=== PATIENT | female | born 1945 | race Caucasian/White ===

== ENCOUNTER 2016-09-25 17:04 | Emergency (ER) | payer MEDICARE, OTHER ==
[2016-09-25] MEDS ORDERED: NORCO 5/325 MG PO ONE (17:20)
[2016-09-25 17:25] VITALS: BP 143/81; PULSE 80; O2SAT 100
--- NOTE | 2016-09-25 17:33 | ERPHSYRPT ---
- History of Present Illness Time Seen by Provider: 09/25/16 17:20 Source: patient, family Patient Subjective Stated Complaint: sudden pain to left foot Triage Nursing Assessment: to room per w/c. skin w/d, color normal. states had sudden onset of left foot pain today, denies injury. foot w/d, color normal , no swelling noted. good pedal pulse, good cap refill. Physician History: CC: left foot pain Hx: 71 y/o lady went to today to see her radiologist. She went home and was carrying in groceries and noted left foot pain, swelling. Worse so came to ER. It was red but that is now better. No fever or chills. No specific injury. No hx of gout. Not on blood thinners. Pain moderately severe. Method of Injury: unknown Occurred: this afternoon Severity of Pain-Max: severe Severity of Pain-Current: severe Lower Extremities Pain: foot: left Allergies/Adverse Reactions: CHLORAPREP Allergy (Uncoded 09/25/16 17:25) Home Medications: Amlodipine Bes/Olmesartan Med [Heri 5-40 mg Tablet] 1 tab PO DAILY 10/14/13 [ History] Levothyroxine Sodium [Synthroid] 25 mcg DAILY 10/14/13 [History] Simvastatin 40 mg [Zocor 40 mg] 20 mg DAILY 10/14/13 [History] Letrozole [Femara] 2.5 mg PO DAILY 09/25/16 [History] Hx Tetanus, Diphtheria Vaccination/Date Given: Yes (2012) Hx Influenza Vaccination/Date Given: Yes Hx Pneumococcal Vaccination/Date Given: Yes - Review of Systems Constitutional: No Fever, No Chills Musculoskeletal: Joint Redness, Joint Pain (left foot), Joint Swelling, No Back Pain, No Neck Pain, No Fall, No Injury Neurological: No Focal Weakness, No Parasthesia - Past Medical History Pertinent Past Medical History: Yes Neurological History: No Pertinent History ENT History: No Pertinent History Cardiac History: Hypertension Respiratory History: No Pertinent History Endocrine Medical History: Hypothyroidism Musculoskeletal History: Osteoporosis GI Medical History: No Pertinent History History: No Pertinent History Psycho-Social History: Depression Female Reproductive Disorders: Breast Cancer Other Medical History: mild depression. hx breast cancer - Past Surgical History Past Surgical History: Yes Neuro Surgical History: No Pertinent History Cardiac: No Pertinent History Respiratory: No Pertinent History Gastrointestinal: Cholecystectomy Genitourinary: No Pertinent History Musculoskeletal: No Pertinent History Female Surgical History: No Pertinent History, Mastectomy Other Surgical History: CATARACT,LEFT BREAST BX - Social History Smoking Status: Never smoker Exposure to second hand smoke: No Drug Use: none Patient Lives Alone: No - Female History Hx Now: No - Nursing Vital Signs Nursing Vital Signs: Initial Vital Signs Temperature 97.2 F Temperature Source Oral Pulse Rate 80 Respiratory Rate 16 Blood Pressure [Right Arm] 143/81 Pain Intensity 8 - Physical Exam General Appearance: alert Eyes, Ears, Nose, Throat Exam: moist mucous membranes Neck Exam: supple Cardiovascular/Respiratory Exam: regular rate/rhythm Neuro/Tendon Exam: normal sensation, normal motor functions Mental Status Exam: alert, oriented x 3, cooperative Skin Exam: warm, dry, No rash SpO2 Interpretation: normal SpO2: 100 Oxygen Delivery: Room Air Comments: left foot dorsum is mildly swollen. Good pedal pulses. No ankle tenderness. There is metatarsal tenderness. No erythema or warmth. - Course Nursing assessment & vital signs reviewed: Yes - Radiology Exams left foot X-ray Interpretation: Reviewed by me, No Fracture (no malalignment, heel spur present) Ordered Tests: Active Orders 24 hr Category Date Time Status Ede [facility] Care 09/25/16 17:21 Active Cold Application STAT Care 09/25/16 17:21 Active Splint STAT Care 09/25/16 17:20 Active FOOT (MINIMUM 3 VIEWS) Stat Exams 09/25/16 17:20 Taken Medication Summary Discontinued Medications Generic Name Dose Route Start Last Admin Trade Name Freq PRN Reason Stop Dose Admin Acetaminophen/Hydrocodone Bitart 1 tab 09/25/16 17:20 09/25/16 17:37 [place] 5/325 Mg PO 09/25/16 17:21 1 tab STAT ONE Administration Acetaminophen/Hydrocodone Bitart Confirm 09/25/16 17:36 [place] 5/325 Mg Administered 09/25/16 17:37 Dose 1 tab .ROUTE .STK-MED ONE - Progress Progress Note: 09/25/16 17:57 Nothing to suggest DVT which was their primary concern. No fever, redness, or warmth to suggest acute arthritis or infectious process. Will treat as sprain. Explained may need further testing including labs or MRI if not better. Will use ede, darco, walker. Rx motrin, norco. Counseled pt/family regarding: diagnosis, need for follow-up, rad results - Departure Time of Disposition: 17:58 Departure Disposition: Home Clinical Impression: Sprain of left foot Condition: Stable Critical Care Time: No Referrals: VANESSA BRITTON [Primary Care Provider] - Instructions: Foot Pain, Choose and Use a Walker Additional Instructions: Rx motrin=ibuprofen Rx norco Ede, post op shoe, walker to limit weight bearing No driving while taking norco. Follow up with Dr Britton next week. May need MRI or other tests if not better. Prescriptions: Hydrocodone Bit/Acetaminophen [[place] 5-325 Tablet] 1 each PO Q6H PRN PRN #20 tablet PRN Reason: Pain Ibuprofen 600 mg PO Q6H PRN PRN #20 tablet PRN Reason: Pain
[2016-09-25] MEDS ORDERED: NORCO 5/325 MG ONE (17:36)
--- NOTE | 2016-09-25 21:36 | XRAY ---
Indication: Dorsal pain. No known injury. Comparison: None 3 nonweightbearing views of the left foot demonstrate small plantar heel spur. No other bony, articular, or soft tissue abnormalities.
== END 2016-09-25 18:10 | disposition home or self-care (01) ==
LOC: ED 17:04
DX: S93.602A Unspecified sprain of left foot, initial encounter (principal); M79.672 Pain in left foot
CPT/HCPCS: 73630; 99284; A9270-GY

== ENCOUNTER 2018-12-06 14:42 | Observation (INO) | payer MEDICARE, OTHER ==
[2018-12-06] MEDS ORDERED: MEDICATION INTERVENTION MC SCH (17:30)
[2018-12-06 17:38] LABS: Hematocrit 35.8 % (35-47); Hemoglobin 11.6 gm/dl (12.0-16.0); Mean Cell Volume 93.7 fl (78-100); Mean Corpuscular Hgb Concent. 32.4 g/dl (32-36); Mean Platelet Volume 10.1 fl (6-9.5); Platelet Count 264 K/mm3 (150-450); Red Blood Count 3.82 M/mm3 (4.1-5.4); Red Cell Distribution Width 14.8 % (11.5-14.0); White Blood Count 8.6 K/mm3 (4.0-10.5)
[2018-12-06 17:42] LABS: ALKALINE PHOSPHATASE 129 U/L (38-126); AMYLASE 58 U/L (30-110); ANION GAP 11.8 MEQ/L (5-15); BLOOD UREA NITROGEN 22 mg/dL (7-17); CHLORIDE 107 mmol/L (98-107); Carbon Dioxide 23 mmol/L (22-30); Creatinine 1 0.76 mg/dL (0.52-1.04); Glucose 105 mg/dL (74-106); LIPASE 42 U/L (23-300); Potassium 3.8 mmol/L (3.5-5.1); SGOT/AST 54 U/L (14-36); SGPT/ALT 15 U/L (0-35); SODIUM 137 mmol/L (137-145); Total Protein 7.4 g/dL (6.3-8.2)
[2018-12-06 17:49] LABS: Mean Corpuscular Hemoglobin 30.3 pg (26-32)
[2018-12-06] MEDS: Sodium Chloride 0.9% 1000 ML 1,000 ML IV SCH (18:27)
[2018-12-06] MEDS ORDERED: Benicar 20 MG PO SCH (22:00)
[2018-12-06] MEDS ORDERED: OLMESARTAN MED PO SCH (22:00)
[2018-12-06] MEDS ORDERED: ZOCOR 20MG PO SCH (22:00)
[2018-12-06] MEDS ORDERED: AMLODIPINE BES PO SCH (22:00)
[2018-12-06] MEDS ORDERED: NORVASC 5 MG PO SCH (22:00)
[2018-12-06] MEDS: Coreg 6.25 MG PO SCH (23:47)
[2018-12-07 02:25] LABS: Appearance SLIGHTLY CLOUDY (CLEAR); Bilirubin NEGATIVE (NEGATIVE); Blood MODERATE Ery/ul (0-5); Epithelial Cells RARE /HPF (FEW); Glucose NEGATIVE (NEGATIVE); Ketones MODERATE (NEGATIVE); Leukocyte Esterase NEGATIVE (NEGATIVE); Mucus SLIGHT /HPF (NEGATIVE); Nitrite NEGATIVE (NEGATIVE); Protein,Urine Dip 100 (Negative); RBC 0-2 /HPF (0-2); Specific Gravity 1.021 (1.005-1.025); Urobilinogen NEGATIVE mg/dL (0-1)
[2018-12-07] MEDS: Sodium Chloride 0.9% 1000 ML 1,000 ML IV SCH (06:12)
[2018-12-07] MEDS: Coreg 6.25 MG PO SCH (08:45)
--- NOTE | 2018-12-07 08:59 | PCM.NOTE ---
Date and Time: 12/07/18857 Subjective Assessment: doing ok - Review of Systems Constitutional: No Fever, No Chills Eyes: No Symptoms Ears, Nose, & Throat: No Symptoms Respiratory: No Cough, No Short Of Breath Cardiac: No Chest Pain, No Edema, No Syncope Abdominal/Gastrointestinal: No Abdominal Pain, No Nausea, No Vomiting, No Diarrhea Genitourinary Symptoms: No Dysuria Musculoskeletal: No Back Pain, No Neck Pain Skin: No Rash Neurological: No Dizziness, No Focal Weakness, No Sensory Changes Psychological: No Symptoms Endocrine: No Symptoms Hematologic/Lymphatic: No Symptoms Immunological/Allergic: No Symptoms Objective Exam General Appearance: no apparent distress, alert Neurologic Exam: alert, oriented x 3, cooperative, normal mood/affect, nml cerebellar function, sensation nml, No motor deficits Skin Exam: normal color, warm, dry Eye Exam: PERRL, EOMI, eyes nml inspection Ears, Nose, Throat Exam: normal ENT inspection, pharynx normal, moist mucous membranes Neck Exam: normal inspection, non-tender, supple, full range of motion Respiratory Exam: normal breath sounds, lungs clear, No respiratory distress Cardiovascular Exam: regular rate/rhythm, normal heart sounds Gastrointestinal/Abdomen Exam: soft, No tenderness, No mass Extremity Exam: normal inspection, normal range of motion Back Exam: normal inspection, normal range of motion, No CVA tenderness, No vertebral tenderness Pelvic Exam: deferred Rectal Exam: deferred OBJECTIVE DATA Vital Signs: Vital Signs - 24 hr Temp Pulse Resp BP Pulse Ox 12/07/18 08:00 98.7 F 78 20 114/57 96 12/07/18 04:00 98.4 F 75 16 102/54 92 L 12/07/18 00:00 98.2 F 80 16 134/67 92 L 12/06/18 20:00 98.6 F 92 H 18 118/62 94 L 12/06/18 15:48 98.1 F 103 H 20 132/78 97 12/06/18 15:14 98.1 F 103 H 20 132/78 97 Pain Assessment - Last Documented Pain Intensity 0 Pain Scale Used 0-10 Pain Scale Intake and Output: Intake & Output 12/04/18 12/05/18 12/06/18 12/07/18 11:59 11:59 11:59 11:59 Intake Total 2028 Output Total 500 Balance 1529 Weight 68.9 kg Lab Results: Lab Results-Last 24 Hours 12/06/18 12/06/18 12/07/18 Range/Units 15:20 15:20 00:03 WBC 8.6 (4.0-10.5) K/mm3 RBC 3.82 L (4.1-5.4) M/mm3 Hgb 11.6 L (12.0-16.0) gm/dl Hct 35.8 (35-47) % MCV 93.7 (78-100) fl MCH 30.3 (26-32) pg MCHC 32.4 (32-36) g/dl RDW 14.8 H (11.5-14.0) % Plt Count 264 (150-450) K/mm3 MPV 10.1 H (6-9.5) fl Sodium 137 (137-145) mmol/L Potassium 3.8 (3.5-5.1) mmol/L Chloride 107 (98-107) mmol/L Carbon Dioxide 23 (22-30) mmol/L Anion Gap 11.8 (5-15) MEQ/L BUN 22 H (7-17) mg/dL Creatinine 0.76 (0.52-1.04) mg/dL Estimated GFR > 60.0 ML/MIN Glucose 105 (74-106) mg/dL Calcium 9.0 (8.4-10.2) mg/dL Total Bilirubin 0.70 (0.2-1.3) mg/dL AST 54 H (14-36) U/L ALT 15 (0-35) U/L Alkaline Phosphatase 129 H (38-126) U/L Serum Total Protein 7.4 (6.3-8.2) g/dL Albumin 4.0 (3.5-5.0) g/dL Amylase 58 (30-110) U/L Lipase 42 (23-300) U/L Urine Color YELLOW (YELLOW) Urine Appearance SLIGHTLY CLOUDY (CLEAR) Urine pH 5.0 (5-6) Ur Specific [place] 1.021 (1.005-1.025) Urine Protein 100 (Negative) Urine Ketones MODERATE (NEGATIVE) Urine Blood MODERATE (0-5) Oskar/ul Urine Nitrite NEGATIVE (NEGATIVE) Urine Bilirubin NEGATIVE (NEGATIVE) Urine Urobilinogen NEGATIVE (0-1) mg/dL Ur Leukocyte Esterase NEGATIVE (NEGATIVE) Urine WBC (Auto) 6-10 (0-5) /HPF Urine RBC (Auto) 0-2 (0-2) /HPF U Epithel Cells (Auto) RARE (FEW) /HPF Urine Bacteria (Auto) NONE (NEGATIVE) /HPF Urine Mucus (Auto) SLIGHT (NEGATIVE) /HPF Urine Culture Reflexed ORDERED SEPARATELY (NO) Urine Glucose NEGATIVE (NEGATIVE) mg/dL Radiology Exams: Radiology Procedures Category Date Time Status ABDOMEN AND PELVIS W CONTRAST [CT] Urgent Exams 12/06/18 19:15 Taken Assessment/Plan (1) UTI (urinary tract infection) Current Visit: Yes Status: Acute Qualifiers: Urinary tract infection type: acute cystitis Hematuria presence: without hematuria Qualified Code(s): N30.00 - Acute cystitis without hematuria Assessment & Plan: will start on ceftriaxone Code(s): N39.0 - URINARY TRACT INFECTION, SITE NOT SPECIFIED (2) Dehydration Current Visit: No Status: Acute Code(s): E86.0 - DEHYDRATION
--- NOTE | 2018-12-07 09:13 | PCM.DS ---
Discharge Summary Date of Admission: 12/06/18 14:47 Admitting Physician: RUTH BRYSON Primary Care Provider: VANESSA BRITTON Allergies Allergies CHLORAPREP Allergy (Uncoded 09/25/16 17:25) Hospital Summary - Hospital Course Hospital Course: Last Vital Signs Temp 98.7 F 12/07/18 08:00 Pulse 78 12/07/18 08:00 Resp 20 12/07/18 08:00 BP 114/57 12/07/18 08:00 Pulse Ox 96 12/07/18 08:00 Allergies CHLORAPREP Allergy (Uncoded 09/25/16 17:25) Active Medications Amlodipine Besylate (Norvasc 5 Mg) 5 mg PO HS CISCO Stop: 01/05/19 21:59 Last Admin: 12/06/18 23:47 Dose: 5 mg Carvedilol (Coreg 6.25 Mg) 6.25 mg PO BID CISCO Stop: 01/05/19 21:59 Last Admin: 12/07/18 08:45 Dose: 6.25 mg Ergocalciferol (Vitamin D2) 50,000 unit PO WEEKLY CISCO Stop: 01/06/19 09:59 Sodium Chloride (Sodium Chloride 0.9% 1000 Ml) 1,000 mls @ 100 mls/hr IV .Q10H CISCO Stop: 01/05/19 17:29 Last Admin: 12/07/18 06:12 Dose: 100 mls/hr Levothyroxine Sodium (Synthroid 25 Mcg) 25 mcg PO DAILY CISCO Stop: 01/06/19 09:59 Last Admin: 12/07/18 08:45 Dose: 25 mcg Losartan Potassium (Cozaar 50 Mg) 25 mg PO DAILY CISCO Stop: 01/06/19 09:59 Last Admin: 12/07/18 08:44 Dose: 25 mg Miscellaneous Information (Medication Intervention) 0 each MC .RN TO CHECK WITH PT CISCO Stop: 01/05/19 17:29 Olmesartan (Benicar 20 Mg) 40 mg PO HS CISCO Stop: 01/05/19 21:59 Last Admin: 12/06/18 23:47 Dose: 40 mg Simvastatin (Zocor 20mg) 20 mg PO HS CISCO Stop: 01/05/19 21:59 Last Admin: 12/06/18 23:47 Dose: 20 mg Intake & Output 12/06/18 12/07/18 11:59 11:59 Intake Total 2028 Output Total 500 Balance 1529 Weight 68.9 kg Orders 12/06/18 14:47 Place in Observation ROUTINE 12/06/18 16:05 A Class Lineman/Discharge Plan ROUTINE Nutritional Admission Screen once 12/06/18 17:07 Activity as Tolerated TOLERATED 12/06/18 17:11 Nursing [Miscellaneous Nursing Order] ROUTINE 12/06/18 17:30 Medication Intervention 0 each MC .RN TO CHECK WITH PT NaCl 0.9% 1000 ml [Sodium Chloride 0.9% 1000 ML] 1,000 ml IV 100 mls/hr 12/06/18 19:15 ABDOMEN AND PELVIS W CONTRAST [CT] Urgent 12/06/18 22:00 Amlodipine Besylate 5 mg [Norvasc 5 mg] 5 mg PO HS Carvedilol 6.25 mg [Coreg 6.25 MG] 6.25 mg PO BID Olmesartan Medoxomil 20 mg [Benicar 20 MG] 40 mg PO HS Simvastatin 20Mg [Zocor 20Mg] 20 mg PO HS 12/07/18 04:37 CULTURE,URINE Urgent 12/07/18 10:00 Ergocalciferol (Vitamin D2) [Vitamin D2] 50,000 unit PO WEEKLY Levothyroxine Sodium 25 Mcg [Synthroid 25 Mcg] 25 mcg PO DAILY Losartan Potassium 50 mg [Cozaar 50 MG] 25 mg PO DAILY 12/07/18 Breakfast Regular Diet Lab Tests 12/06/18 12/06/18 12/07/18 15:20 15:20 00:03 WBC 8.6 RBC 3.82 L Hgb 11.6 L Hct 35.8 MCV 93.7 MCH 30.3 MCHC 32.4 RDW 14.8 H Plt Count 264 MPV 10.1 H Sodium 137 Potassium 3.8 Chloride 107 Carbon Dioxide 23 Anion Gap 11.8 BUN 22 H Creatinine 0.76 Estimated GFR > 60.0 Glucose 105 Calcium 9.0 Total Bilirubin 0.70 AST 54 H ALT 15 Alkaline Phosphatase 129 H Serum Total Protein 7.4 Albumin 4.0 Amylase 58 Lipase 42 Urine Color YELLOW Urine Appearance SLIGHTLY CLOUDY Urine pH 5.0 Ur Specific [place] 1.021 Urine Protein 100 Urine Ketones MODERATE Urine Blood MODERATE Urine Nitrite NEGATIVE Urine Bilirubin NEGATIVE Urine Urobilinogen NEGATIVE Ur Leukocyte Esterase NEGATIVE Urine WBC (Auto) 6-10 Urine RBC (Auto) 0-2 U Epithel Cells (Auto) RARE Urine Bacteria (Auto) NONE Urine Mucus (Auto) SLIGHT Urine Culture Reflexed ORDERED SEPARATELY Urine Glucose NEGATIVE - Vitals & Intake/Output Vital Signs: Vital Signs Temperature 98.7 F 12/07/18 08:00 Pulse Rate 78 12/07/18 08:00 Respiratory Rate 20 12/07/18 08:00 Blood Pressure 114/57 12/07/18 08:00 O2 Sat by Pulse Oximetry 96 12/07/18 08:00 Intake & Output: Intake & Output 12/04/18 12/05/18 12/06/18 12/07/18 11:59 11:59 11:59 11:59 Intake Total 2029 Output Total 500 Balance 1529 Weight 68.9 kg - Lab Result Diagrams: 12/06/18 15:20 12/06/18 15:20 Lab Results-Last 24 Hrs: Lab Results-Last 24 Hours 12/06/18 12/06/18 12/07/18 Range/Units 15:20 15:20 00:03 WBC 8.6 (4.0-10.5) K/mm3 RBC 3.82 L (4.1-5.4) M/mm3 Hgb 11.6 L (12.0-16.0) gm/dl Hct 35.8 (35-47) % MCV 93.7 (78-100) fl MCH 30.3 (26-32) pg MCHC 32.4 (32-36) g/dl RDW 14.8 H (11.5-14.0) % Plt Count 264 (150-450) K/mm3 MPV 10.1 H (6-9.5) fl Sodium 137 (137-145) mmol/L Potassium 3.8 (3.5-5.1) mmol/L Chloride 107 (98-107) mmol/L Carbon Dioxide 23 (22-30) mmol/L Anion Gap 11.8 (5-15) MEQ/L BUN 22 H (7-17) mg/dL Creatinine 0.76 (0.52-1.04) mg/dL Estimated GFR > 60.0 ML/MIN Glucose 105 (74-106) mg/dL Calcium 9.0 (8.4-10.2) mg/dL Total Bilirubin 0.70 (0.2-1.3) mg/dL AST 54 H (14-36) U/L ALT 15 (0-35) U/L Alkaline Phosphatase 129 H (38-126) U/L Serum Total Protein 7.4 (6.3-8.2) g/dL Albumin 4.0 (3.5-5.0) g/dL Amylase 58 (30-110) U/L Lipase 42 (23-300) U/L Urine Color YELLOW (YELLOW) Urine Appearance SLIGHTLY CLOUDY (CLEAR) Urine pH 5.0 (5-6) Ur Specific [place] 1.021 (1.005-1.025) Urine Protein 100 (Negative) Urine Ketones MODERATE (NEGATIVE) Urine Blood MODERATE (0-5) Oskar/ul Urine Nitrite NEGATIVE (NEGATIVE) Urine Bilirubin NEGATIVE (NEGATIVE) Urine Urobilinogen NEGATIVE (0-1) mg/dL Ur Leukocyte Esterase NEGATIVE (NEGATIVE) Urine WBC (Auto) 6-10 (0-5) /HPF Urine RBC (Auto) 0-2 (0-2) /HPF U Epithel Cells (Auto) RARE (FEW) /HPF Urine Bacteria (Auto) NONE (NEGATIVE) /HPF Urine Mucus (Auto) SLIGHT (NEGATIVE) /HPF Urine Culture Reflexed ORDERED SEPARATELY (NO) Urine Glucose NEGATIVE (NEGATIVE) mg/dL - Radiology Exams Ordered Rad Exams-Entire Visit: Radiology Procedures Category Date Time Status ABDOMEN AND PELVIS W CONTRAST [CT] Urgent Exams 12/06/18 19:15 Taken Discharge Exam General Appearance: no apparent distress, alert Neurologic Exam: alert, oriented x 3, cooperative, normal mood/affect, nml cerebellar function, sensation nml, No motor deficits Eye Exam: PERRL, EOMI, eyes nml inspection Ears, Nose, Throat Exam: normal ENT inspection, pharynx normal, moist mucous membranes Neck Exam: normal inspection, non-tender, supple, full range of motion Respiratory Exam: normal breath sounds, lungs clear, No respiratory distress Cardiovascular Exam: regular rate/rhythm, normal heart sounds Gastrointestinal/Abdomen Exam: soft, No tenderness, No mass Pelvic Exam: deferred Rectal Exam: deferred Back Exam: normal inspection, normal range of motion, No CVA tenderness, No vertebral tenderness Extremity Exam: normal inspection, normal range of motion Skin Exam: normal color, warm, dry Final Diagnosis/Problem List - Final Discharge Diagnosis/Problem (1) UTI (urinary tract infection) Current Visit: Yes Status: Acute Code(s): N39.0 - URINARY TRACT INFECTION, SITE NOT SPECIFIED (2) Dehydration Current Visit: Yes Status: Resolved Code(s): E86.0 - DEHYDRATION (3) Colitis Current Visit: Yes Status: Acute Code(s): K52.9 - NONINFECTIVE GASTROENTERITIS AND COLITIS, UNSPECIFIED - Discharge Discharge Date: 12/07/18 Disposition: Home, Self-Care Condition: Stable Prescriptions: New Ciprofloxacin [Cipro 500 MG] 500 mg PO BID #15 tablet Continue Amlodipine Bes/Olmesartan Med [Heri 5-40 mg Tablet] 1 tab PO HS Simvastatin 40 mg [Zocor 40 mg] 20 mg PO HS Levothyroxine Sodium [Synthroid] 25 mcg PO DAILY Letrozole [Femara] 2.5 mg PO DAILY Carvedilol 6.25 mg [Coreg 6.25 MG] 6.25 mg PO BID Ergocalciferol (Vitamin D2) [Vitamin D] 50,000 units PO WEEKLY Losartan Potassium [Cozaar] 25 mg PO DAILY Follow up with: VANESSA BRITTON [Primary Care Provider] - 1 Week
--- NOTE | 2018-12-07 09:22 | XRAY ---
Indication: Dehydration, nausea, vomiting, diarrhea, weakness, and fever. Left mastectomy. Multiple contiguous axial images obtained through the abdomen and pelvis using 80 cc Isovue 370 contrast only. Comparison: None Lung bases demonstrates bibasilar dependent atelectasis, a few tiny calcified granulomas, and tiny left effusion. No infiltrate. Heart is not enlarged. Moderate-sized hiatal hernia with partial intrathoracic stomach. There has been left mastectomy. Noncontrasted stomach and bowel loops appear nonobstructed. Normal appendix. There are mild fluid distended small and large bowel loops with predominantly asynchronous fluid leveling, ileus versus enterocolitis. No free fluid/air. Minimal sigmoid diverticulosis. A few hepatic cysts, largest right lobe measuring 5 cm. Both kidneys enhance and excrete with a few bilateral renal cysts, largest right lower pole measuring 2.2 cm. Previous cholecystectomy. Remaining liver, pancreas, spleen, adrenal glands, kidneys, ureters, bladder, and uterus appear unremarkable. Mild aortic calcifications. No AAA or pathologic retroperitoneal lymphadenopathy. Osseous structures intact with mild degenerative changes throughout the thoracolumbar spine. Visualized axial skeleton also demonstrates multiple sclerotic lesions worrisome for metastasis. No ventral or inguinal hernias. Impression: 1. Fluid distended small and large bowel loops with fluid leveling, ileus versus enterocolitis. 2. Multiple bony sclerotic lesions worrisome for metastasis in this patient with history of left breast cancer. 3. Incidental hiatal hernia with partial intrathoracic stomach, sigmoid diverticulosis, hepatic cysts, and renal cysts. Comment: Preliminary interpretation was made by [facility]. No critical discrepancy. CT DI 16.55
[2018-12-07] MEDS ORDERED: Cozaar 50 MG PO SCH (10:00)
[2018-12-07] MEDS ORDERED: VITAMIN D2 PO SCH (10:00)
[2018-12-07] MEDS ORDERED: LETROZOLE 2.5 MG PO SCH (10:00)
[2018-12-07] MEDS ORDERED: SYNTHROID 25 MCG PO SCH (10:00)
[2018-12-07 13:10] VITALS: BP 109/61; PULSE 75; O2SAT 97
== END 2018-12-07 12:05 | disposition home or self-care (01) ==
LOC: MED SURG 14:47
PROVIDERS: ADMIT General Practice; ATTEND General Practice
DX: N39.0 Urinary tract infection, site not specified (principal); E86.0 Dehydration; K52.9 Noninfective gastroenteritis and colitis, unspecified; Z79.899 Other long term (current) drug therapy
CPT/HCPCS: 36415; 74177; 80053; 81001; 82150; 83690; 85027; 87086; G0378; A9270-GY

== ENCOUNTER 2025-03-01 06:00 | Emergency (ER) | payer MEDICARE, OTHER ==
[2025-03-01 06:27] VITALS: RESP 20; TEMP 98.2
--- NOTE | 2025-03-01 06:41 | ERPHSYRPT ---
- History of Present Illness Historian: patient, family Exam Limitations: no limitations Patient Subjective Stated Complaint: pt reports she was recently treated for colitis and had diarrhea, reports now that she has not had a bowel movement in 3 days and is having severe abominal pain that radiates to her back, states she was unable to sleep last night due to pain. pt reports recent treatment for bronchitis as well. Triage Nursing Assessment: pt is aox3, pupils perrl, afebrile, resps easy and non labored, cap refill < 3 seconds, radial pulses strong and equal, abdomen is distended, tender diffusely, bowel sounds present, pt skin pale warm dry. Timing/Duration: day(s) (3) Activities at Onset: none Quality: cramping Abdominal Pain Onset Location: generalized abdomen Severity of Pain-Max: mild (To moderate) Severity of Pain-Current: mild (Moderate) Modifying Factors: Improves With: nothing Associated Symptoms: loss of appetite, other (Constipation) Previous symptoms: no prior history, recently treated (For bronchitis and a right ear infection) Hx Tetanus, Diphtheria Vaccination/Date Given: No (2012) Hx Influenza Vaccination/Date Given: Yes Hx Pneumococcal Vaccination/Date Given: Yes <LAINEY KIDD - Last Filed: 03/01/25 06:44> <KAMILA DUTTA - Last Filed: 03/01/25 08:38> - History of Present Illness Time Seen by Provider: 03/01/25 06:15 Physician History: This is an 79-year-old white female patient who presents to the emergency department by private vehicle accompanied by her spouse with a complaint of abdominal pain and constipation for 3 days. Patient has generalized abdominal cramping. In 2014 patient was diagnosed with breast cancer. Over the last few months, the patient has been taking 2 weeks on, 2 weeks off chemotherapy pill for bone recurrence of breast cancer per her report. A few weeks ago patient had colitis and was started on antibiotic. That cleared up. She then was diagnosed with bronchitis and was started on Augmentin and a Medrol Dosepak. She is currently on those medications. She was then placed on topical otic drops for right ear pain. Patient has a PET scan scheduled for the next 1 to 2 weeks. Prior to her constipation she had several days of diarrhea. Patient denies chest pain the patient denies shortness of breath. Patient has a history of hypertension, hyperlipidemia, hypothyroidism and gastroesophageal reflux disease. (LAINEY KIDD) Allergies/Adverse Reactions: CHLORAPREP Allergy (Uncoded 03/01/25 06:27) Home Medications: Levothyroxine Sodium [Synthroid] 100 mcg PO DAILY 10/14/13 [History] Simvastatin 40 mg [Zocor 40 mg] 20 mg PO HS 10/14/13 [History] Amlodipine Besylate 5 mg [Norvasc 5 mg] 5 mg PO HS 03/01/25 [History] Amox Tr/Potass Clav. 875 mg [Augmentin 875-125 Tablet] 875 mg PO DAILY 03/01/25 [History] Benzonatate 100 mg PO Q8HPRN PRN 03/01/25 [History] Capecitabine [Xeloda] 500 mg PO UD 03/01/25 [History] Fenofibrate Nanocrystallized [Fenofibrate] 48 mg PO HS 03/01/25 [History] Alexander/Baci/Poly/Hc Ear Solution* [CORTISPORIN EAR DROPS Solution 1OML] 4 drops OT TID 03/01/25 [History] Omeprazole 40 mg PO HS 03/01/25 [History] methylPREDNISolone [Methylprednisolone] 4 mg PO UD 03/01/25 [History] Travel Risk - International Travel Have you traveled outside of the country in past 3 weeks: No - Emerging Infectious Disease Are you exhibiting symptoms associated with any current EIDs: No <LAINEY KIDD - Last Filed: 03/01/25 06:44> - Review of Systems Constitutional: No Symptoms Eyes: No Symptoms Ears, Nose, & Throat: No Symptoms Respiratory: No Symptoms Cardiac: No Symptoms Abdominal/Gastrointestinal: Abdominal Pain, Nausea (None now), Constipation, Appetite Changes Genitourinary Symptoms: No Symptoms Musculoskeletal: No Symptoms Skin: No Symptoms Neurological: No Symptoms Psychological: No Symptoms Endocrine: No Symptoms Hematologic/Lymphatic: No Symptoms Immunological/Allergic: No Symptoms All Other Systems: Reviewed and Negative <LAINEY KIDD - Last Filed: 03/01/25 06:44> - Past Medical History Pertinent Past Medical History: Yes Neurological History: No Pertinent History ENT History: Cataracts Cardiac History: Hypertension Respiratory History: No Pertinent History Endocrine Medical History: Hypothyroidism Musculoskeletal History: Osteoporosis GI Medical History: No Pertinent History History: No Pertinent History Psycho-Social History: Depression Female Reproductive Disorders: Breast Cancer Other Medical History: mild depression. hx breast cancer - Past Surgical History Past Surgical History: Yes Neuro Surgical History: No Pertinent History Cardiac: No Pertinent History Respiratory: No Pertinent History Gastrointestinal: Cholecystectomy Genitourinary: No Pertinent History Musculoskeletal: No Pertinent History Female Surgical History: Mastectomy Other Surgical History: CATARACT,LEFT BREAST BX - Social History Smoking Status: Never smoker Exposure to second hand smoke: No Drug Use: none - Social Determinants of Health Will the patient participate in the screening: Yes Do you worry about a steady place to live?: No Do you have any problems with any of the following?: No known problems In the past 12 months,have you had to go without utilities?: No Transportation Issues: No Has anyone in your support network made you feel unsafe?: No Have you or anyone in your house had to go w/o enough food: No <LAINEY KIDD - Last Filed: 03/01/25 06:44> - Physical Exam General Appearance: no apparent distress, alert, anxiety Eye Exam: PERRL/EOMI, eyes nml inspection Ears, Nose, Throat Exam: dry mucous membranes Neck Exam: normal inspection, non-tender, supple, full range of motion Respiratory Exam: normal breath sounds, lungs clear, airway intact, No chest tenderness, No respiratory distress Cardiovascular Exam: regular rate/rhythm, normal heart sounds, normal peripheral pulses Gastrointestinal/Abdomen Exam: soft, normal bowel sounds, tenderness (Generalized mild to palpation), guarding Pelvic Exam: not done Rectal Exam: not done Back Exam: normal inspection, normal range of motion, No CVA tenderness, No vertebral tenderness Extremity Exam: normal inspection, normal range of motion, pelvis stable Neurologic Exam: alert, oriented x 3, cooperative, night time babysitter II-XII nml as tested, nml cerebellar function, nml station & gait, sensation nml Skin Exam: normal color, warm, dry Lymphatic Exam: No adenopathy SpO2 Interpretation: normal SpO2: 97 O2 Delivery: Room Air <LAINEY KIDD - Last Filed: 03/01/25 06:44> - Nursing Vital Signs Nursing Vital Signs: Initial Vital Signs Temperature 98.2 F 03/01/25 06:10 Pulse Rate 62 03/01/25 06:10 Respiratory Rate 20 03/01/25 06:10 Blood Pressure 125/76 03/01/25 06:10 O2 Sat by Pulse Oximetry 97 03/01/25 06:10 Pain Scale Pain Intensity 10 <KAMILA DUTTA - Last Filed: 03/01/25 08:38> Ordered Tests: Active Orders 24 hr Category Date Time Status IV Insertion STAT Care 03/01/25 06:41 Active ABDOMEN AND PELVIS W/0 CONTRAS [CT] Stat Exams 03/01/25 06:42 Completed CHEST WITHOUT CONTRAST [CT] Stat Exams 03/01/25 06:43 Completed AMYLASE Stat Lab 03/01/25 07:48 Completed BLOOD CULTURE Stat Lab 03/01/25 07:48 Ordered CBC W DIFF Stat Lab 03/01/25 07:48 Completed CMP Stat Lab 03/01/25 07:48 Completed LIPASE Stat Lab 03/01/25 07:48 Completed UA W/RFX UR CULTURE Stat Lab 03/01/25 06:44 Completed Medication Summary Generic Name Dose Route Start Last Admin Trade Name [place] PRN Reason Stop Dose Admin Sodium Chloride 1,000 mls @ 100 mls/hr 03/01/25 06:45 03/01/25 06:50 Sodium Chloride 0.9% 1000 Ml IV 03/31/25 06:44 100 mls/hr .Q10H CISCO Administration Discontinued Medications Generic Name Dose Route Start Last Admin Trade Name Chaseq PRN Reason Stop Dose Admin Ketorolac Tromethamine 15 mg 03/01/25 07:46 03/01/25 07:49 Ketorolac Tromethamine 30 Mg/Ml Inj IV 03/01/25 07:47 15 mg STAT ONE Administration Lab/Rad Data: Laboratory Result Diagrams 03/01/25 07:48 03/01/25 07:48 Laboratory Results 03/01/25 03/01/25 03/01/25 Range/Units 07:48 07:48 06:44 WBC 8.8 (3.98-10.04) x10^3/uL RBC 2.78 L (3.93-5.22) x10^6/uL Hgb 9.5 L (11.2-15.7) g/dL Hct 30.0 L (34.1-44.9) % MCV 107.9 H (79.4-94.8) fL MCH 34.2 H (25.6-32.2) pg MCHC 31.7 L (32.2-35.5) g/dL RDW 17.9 H (11.7-14.4) % Plt Count 191 (182-369) x10^3/uL MPV 9.1 L (9.4-12.3) fL Gran % 73.9 H (34.0-71.1) % Immature Gran % (Auto) 2.2 H (0.001-0.429) % Nucleat RBC Rel Count 0.9 H (0.00-0.2) % Eos # (Auto) 0.02 L (0.04-0.36) x10^3/uL Immature Gran # (Auto) 0.19 H (0.001-0.031) x10^3u/L Absolute Lymphs (auto) 1.47 (1.18-3.74) x10^3/uL Absolute Monos (auto) 0.61 (0.24-0.86) x10^3/uL Absolute Nucleated RBC 0.08 H (0.00-0.012) x10^3u/L Lymphocytes % 16.7 L (19.3-51.7) % Monocytes % 6.9 (4.7-12.5) % Eosinophils % 0.2 L (0.7-5.8) % Basophils % 0.1 (0.1-1.2) % Absolute Granulocytes 6.48 H (1.56-6.13) x10^3/uL Basophils # 0.01 (0.01-0.08) x10^3/uL Sodium 138 (135-145) mmol/L Potassium 4.1 (3.5-5.1) mmol/L Chloride 106 (98-107) mmol/L Carbon Dioxide 27 (22-30) mmol/L Anion Gap 9.9 (5-15) MEQ/L BUN 28 H (7-17) mg/dL Creatinine 0.84 (0.52-1.04) mg/dL Estimated GFR 69.8 ML/MIN Glucose 90 (74-106) mg/dL Calcium 9.3 (8.4-10.2) mg/dL Total Bilirubin 0.50 (0.2-1.3) mg/dL AST 79 H (14-36) U/L ALT 16 (0-35) U/L Alkaline Phosphatase 151 H (38-126) U/L Serum Total Protein 6.1 L (6.3-8.2) g/dL Albumin 3.6 (3.5-5.0) g/dL Amylase 57 (30-110) U/L Lipase 49 (23-300) U/L Urine Color Yellow (Yellow) Urine Appearance Clear (Clear) Urine pH 6.0 (4.6-8.0) Ur Specific [place] 1.015 (1.005-1.030) Urine Protein Negative (Negative) Urine Glucose (UA) Negative (Negative) mg/dL Urine Ketones Negative (Negative) Urine Blood Trace (Negative) Urine Nitrite Negative (Negative) Urine Bilirubin Negative (Negative) Urine Urobilinogen 1.0 A (0.2) mg/dL Ur Leukocyte Esterase Negative (Negative) U Hyaline Cast (Auto) NONE SEEN (0-2) /LPF Urine Microscopic RBC 0-2 (0-5) /HPF Urine Microscopic WBC 0-2 (0-5) /HPF Ur Epithelial Cells Rare (None Seen) /HPF Urine Bacteria None Seen (None Seen) /HPF Urine Culture Reflexed NO (NO) Procedures: [id number] CT/CHEST WITHOUT CONTRAST CLINICAL HISTORY: L posterior lateral rib/flank pain COMPARISON: None. TECHNIQUE: Contiguous axial images were obtained from the neck base through the upper abdomen without contrast. In addition, sagittal and coronal reconstructions were performed to potentially increase the sensitivity for the detection of disease. CT scan was performed according to ALARA (as low as reasonably achievable). FINDINGS: Evidence of multiple sclerotic/osteolytic lesions are noted involving visualized all bones, including spine, sternum, bilateral ribs, bilateral scapula.- possibility of marrow infiltrative disease /could be metastasis - clinical correlation suggested. Evidence of left mastectomy. Multiple tiny scattered calcified granuloma noted in both lungs. Focal fibroatelectatic band is noted involving lingula. Old healed fracture of left 11th rib. Rest of lungs are clear. central airways are patent. There are no pleural effusions. No pneumothorax is seen. Evaluation of the mediastinum and anny is limited due to the lack of intravenous contrast. No axillary or mediastinal adenopathy is identified. The thyroid is unremarkable. The heart, aorta, and pulmonary arteries are of normal size and configuration. There are coronary artery and aortic atherosclerotic calcifications. No pericardial effusion is identified. Large rolling hiatus hernia. IMPRESSION: 1. Evidence of multiple sclerotic/osteolytic lesions are noted involving visualized all bones, including spine, sternum, bilateral ribs, bilateral scapula.- possibility of marrow infiltrative disease /could be metastasis - clinical correlation suggested. 2. Multiple tiny scattered calcified granuloma noted in both lungs. 3. Focal fibroatelectatic band is noted involving lingula. 4. Old healed fracture of left 11th rib. [id number] CT/ABDOMEN AND PELVIS W/0 CONTRAS CLINICAL HISTORY: ABD pain; constipation COMPARISON: 12:50:40 [employer]. TECHNIQUE: Contiguous axial images were obtained from the level of the diaphragm to the pubic symphysis without intravenous or oral contrast. Coronal and sagittal reconstructions were likewise performed and indicated to increase the sensitivity for detecting clinically relevant pathology. CT scan was performed according to ALARA (as low as reasonably achievable). FINDINGS: Large rolling hiatus hernia. Evidence of left mastectomy. Evaluation of the abdominal and pelvic visceral organs is limited without intravenous contrast. The unenhanced liver, spleen, pancreas, and adrenal glands are grossly unremarkable. Few hypodense lesions are noted in right lobe of liver - appears benign/ could be Cyst (Advice: Triphasic study correlation). Status post-cholecystectomy. The kidneys are normal in size and attenuation without obvious calcification. There is no hydronephrosis or perinephric stranding. The ureters are normal in caliber. No adenopathy or fluid collections are seen. No evidence of focal or diffuse bowel wall thickening or evidence of bowel obstruction is seen. No imaging evidence of appendicitis. The aorta is normal in caliber. The urinary bladder is normal in contour. Pelvic viscera are grossly unremarkable. Evidence of multiple sclerotic/osteolytic lesions are noted involving visualized all bones, including spine, visualized pelvic bones and femora- possibility of marrow infiltrative disease /could be metastasis - clinical correlation suggested. IMPRESSION: Evidence of multiple sclerotic/osteolytic lesions are noted involving visualized all bones, including spine, visualized pelvic bones and femora- possibility of marrow infiltrative disease /could be metastasis - clinical correlation suggested.-stable. Few hypodense lesions are noted in right lobe of liver - appears benign/ could be Cyst (Advice: Triphasic study correlation).-stable. No other new interval abnormality since prior study. (KAMILA DUTTA) <LAINEY KIDD - Last Filed: 03/01/25 06:44> - Progress Progress: improved Counseled pt/family regarding: lab results, diagnosis, need for follow-up, rad results <KAMILA DUTTA - Last Filed: 03/01/25 08:38> - Progress Progress Note: 03/01/25 06:48 My medical decision making and assignment of moderate complexity to this patient's medical issue today is based on review of the patient's past medical history, review the patient's medication list, reviewed patient drug allergy list, history present illness and physical findings on examination. The workup in this patient includes placement of intravenous line, infusion of low rate crystalloid, CBC, CMP, amylase, lipase, urinalysis, CT scan of the chest and CT scan abdomen pelvis both without contrast. Differential diagnosis includes but is not limited to carcinomatosis, bowel obstruction, constipation, pancreatitis, colitis, diverticulitis, metastatic breast cancer I am transferring care of this patient to Dr. Dutta at shift change. Dr. Dutta will follow-up on the pending studies and make final disposition (LAINEY KIDD) 03/01/25 08:37 Patient was reexamined after Toradol.She is pain-free.Reviewed her labs and urinalysis which did not show any acute abnormality. Her CT showed multiple bony lesions. No evidence of bowel obstruction or intra-abdominal process. At this time she is comfortable starting a stool softener for constipation as she has not had a bowel movement in 3 days. She has follow-up with her primary doctor. We reviewed follow-up return instructions she voiced understanding of treatment plan. Return instructions were given (KAMILA DUTTA) - Departure Departure Disposition: Home Critical Care Time: No <LAINEY KIDD - Last Filed: 03/01/25 06:44> - Departure Critical Care Time: No <KAMILA DUTTA - Last Filed: 03/01/25 08:38> - Departure Clinical Impression: Abdominal pain, Constipation Condition: Stable Referrals: VANESSA BRITTON [Primary Care Provider, [facility]] - Follow up/PCP as directed
[2025-03-01 06:59] LABS: Glucose, Urine Negative (Negative); Protein,Urine Dip Negative (Negative); RBC 0-2 /HPF (0-5); WBC 0-2 /HPF (0-5)
[2025-03-01] MEDS ORDERED: TORAdol 30 mg Injection ONE (07:47)
[2025-03-01] MEDS: TORAdol 30 mg Injection IV ONE (07:49)
[2025-03-01 07:55] LABS: BASOPHIL % 0.1 % (0.1-1.2); Basophil (Absolute #) 0.01 x10^3/uL (0.01-0.08); Eosinophil (Absolute #) 0.02 x10^3/uL (0.04-0.36); Hematocrit 30.0 % (34.1-44.9); Hemoglobin 9.5 g/dL (11.2-15.7); IMMATURE GRAN # 0.19 x10^3u/L (0.001-0.031); IMMATURE GRAN % 2.2 % (0.001-0.429); Lymphocyte (Absolute #) 1.47 x10^3/uL (1.18-3.74); Mean Corpuscular Hemoglobin 34.2 pg (25.6-32.2); Mean Corpuscular Hgb Concent. 31.7 g/dL (32.2-35.5); Monocyte (Absolute #) 0.61 x10^3/uL (0.24-0.86); NUCLEATED RBC # 0.08 x10^3u/L (0.00-0.012); NUCLEATED RBC % 0.9 % (0.00-0.2); Platelet Count 191 x10^3/uL (182-369); Red Blood Count 2.78 x10^6/uL (3.93-5.22); White Blood Count 8.8 x10^3/uL (3.98-10.04)
[2025-03-01 08:08] VITALS: O2SAT 96
[2025-03-01 08:10] LABS: Calcium 9.3 mg/dL (8.4-10.2); Carbon Dioxide 27.0 mmol/L (22-30); Creatinine 1 0.84 mg/dL (0.52-1.04); EST GLOMERULAR FILTRATION RATE 69.8 ML/MIN; Glucose 90.0 mg/dL (74-106); Potassium 4.1 mmol/L (3.5-5.1); SGOT/AST 79.0 U/L (14-36); SGPT/ALT 16.0 U/L (0-35); Total Protein 6.1 g/dL (6.3-8.2)
--- NOTE | 2025-03-01 08:18 | XRAY ---
CLINICAL HISTORY: ABD pain; constipation COMPARISON: 12:50:40 [employer]. TECHNIQUE: Contiguous axial images were obtained from the level of the diaphragm to the pubic symphysis without intravenous or oral contrast. Coronal and sagittal reconstructions were likewise performed and indicated to increase the sensitivity for detecting clinically relevant pathology. CT scan was performed according to ALARA (as low as reasonably achievable). FINDINGS: Large rolling hiatus hernia. Evidence of left mastectomy. Evaluation of the abdominal and pelvic visceral organs is limited without intravenous contrast. The unenhanced liver, spleen, pancreas, and adrenal glands are grossly unremarkable. Few hypodense lesions are noted in right lobe of liver - appears benign/ could be Cyst (Advice: Triphasic study correlation). Status post-cholecystectomy. The kidneys are normal in size and attenuation without obvious calcification. There is no hydronephrosis or perinephric stranding. The ureters are normal in caliber. No adenopathy or fluid collections are seen. No evidence of focal or diffuse bowel wall thickening or evidence of bowel obstruction is seen. No imaging evidence of appendicitis. The aorta is normal in caliber. The urinary bladder is normal in contour. Pelvic viscera are grossly unremarkable. Evidence of multiple sclerotic/osteolytic lesions are noted involving visualized all bones, including spine, visualized pelvic bones and femora- possibility of marrow infiltrative disease /could be metastasis - clinical correlation suggested. IMPRESSION: Evidence of multiple sclerotic/osteolytic lesions are noted involving visualized all bones, including spine, visualized pelvic bones and femora- possibility of marrow infiltrative disease /could be metastasis - clinical correlation suggested.-stable. Few hypodense lesions are noted in right lobe of liver - appears benign/ could be Cyst (Advice: Triphasic study correlation).-stable. No other new interval abnormality since prior study. Electronically Signed by: Harish Lin MD. (03/01/2025 08:16:35 EDT)
--- NOTE | 2025-03-01 08:20 | XRAY ---
CLINICAL HISTORY: L posterior lateral rib/flank pain COMPARISON: None. TECHNIQUE: Contiguous axial images were obtained from the neck base through the upper abdomen without contrast. In addition, sagittal and coronal reconstructions were performed to potentially increase the sensitivity for the detection of disease. CT scan was performed according to ALARA (as low as reasonably achievable). FINDINGS: Evidence of multiple sclerotic/osteolytic lesions are noted involving visualized all bones, including spine, sternum, bilateral ribs, bilateral scapula.- possibility of marrow infiltrative disease /could be metastasis - clinical correlation suggested. Evidence of left mastectomy. Multiple tiny scattered calcified granuloma noted in both lungs. Focal fibroatelectatic band is noted involving lingula. Old healed fracture of left 11th rib. Rest of lungs are clear. central airways are patent. There are no pleural effusions. No pneumothorax is seen. Evaluation of the mediastinum and anny is limited due to the lack of intravenous contrast. No axillary or mediastinal adenopathy is identified. The thyroid is unremarkable. The heart, aorta, and pulmonary arteries are of normal size and configuration. There are coronary artery and aortic atherosclerotic calcifications. No pericardial effusion is identified. Large rolling hiatus hernia. IMPRESSION: 1. Evidence of multiple sclerotic/osteolytic lesions are noted involving visualized all bones, including spine, sternum, bilateral ribs, bilateral scapula.- possibility of marrow infiltrative disease /could be metastasis - clinical correlation suggested. 2. Multiple tiny scattered calcified granuloma noted in both lungs. 3. Focal fibroatelectatic band is noted involving lingula. 4. Old healed fracture of left 11th rib. Electronically Signed by: Harish Lin MD. (03/01/2025 08:19:05 EDT)
[2025-03-01 08:58] VITALS: BP 135/86; PULSE 74
== END 2025-03-01 08:59 | disposition home or self-care (01) ==
LOC: ED 06:00
DX: R10.84 Generalized abdominal pain (principal); K59.00 Constipation, unspecified; I10 Essential (primary) hypertension; Z79.52 Long term (current) use of systemic steroids; Z79.899 Other long term (current) drug therapy